=== PATIENT | female | born 1995 | race Caucasian/White ===

== ENCOUNTER 2017-11-22 12:52 | Emergency (ER) | payer SELFPAY ==
[2017-11-22 13:57] LABS: #Eosinphils 0.2 thou/uL (0.0-0.7); #Lymphocytes 1.7 thou/uL (1.20-3.40); #Monocytes 0.2 thou/uL (0.11-0.59); %Basophils 0.2 % (0.0-1.0); %Eosinophils 1.9 % (0.0-10.0); %Lymphocytes 21.1 % (21.0-51.0); %Monocytes 2.4 % (0.0-10.0); %Neutrophils 74.4 % (42.0-75.0); Hemoglobin 13.6 g/dL (12.0-16.0); Mean Corpuscular Hemoglobin 31.4 pg (27.0-31.0); Mean Corpuscular Volume 92.4 fl (81.0-99.0); Mean Platelet Volume 6.9 fL (7.4-10.4); Platelet Count 278 thou/uL (130-400); RBC Distribution Width 11.5 % (11.5-14.5); Red Blood Cell (RBC) Count 4.34 mill/uL (4.20-5.40); White Blood Cell (WBC) Count 8.1 thou/uL (4.8-10.8)
[2017-11-22 14:28] LABS: ALT (SGPT) 10 U/L (8-55); AST (SGOT) 16 U/L (5-34); Albumin 4.6 g/dL (3.5-5.0); Alkaline Phosphatase 49 U/L (40-150); Anion Gap 13 mmol/L (10-20); BUN (Urea Nitrogen) 5 mg/dL (7.0-18.7); Bilirubin, Total 0.5 mg/dL (0.2-1.2); Calc. Creatinine Clearance 0 mL/min (70-130); Calcium 9.8 mg/dL (7.8-10.44); Carbon Dioxide 23 mmol/L (22-29); Chloride 105 mmol/L (98-107); Estimated GFR-MDRD Greater than 90; Globulin 3.1 g/dL (2.4-3.5); Glucose 61 mg/dL (70-105); Potassium 3.6 mmol/L (3.5-5.1); Protein, Total 7.7 g/dL (6.0-8.3); Sodium 137 mmol/L (136-145)
--- NOTE | 2017-11-22 15:11 | ULT ---
OB ULTRASOND: Date: 11/22/17 HISTORY: Vaginal bleeding. FINDINGS: There is a single viable intrauterine . Gestational age by ultrasound is 16 weeks/0 days. Bi ometry measurements are consistent. Heart Rate: 153-155 Placenta: Fundal. Presentation: Cephalic. Amniotic Fluid: Within normal range. Cervical Length: 5.4 cm. Visualized anatomy includes limited intracranial imaging, four chamber heart, stomach, kidneys, cord insertion, and bladder. IMPRESSION: 16 weeks/0 days gestation by ultrasound. No abnormality identified. POS: [facility]
== END 2017-11-22 15:52 | disposition home or self-care (01) ==
LOC: ERS 12:52
DX: O20.0 Threatened abortion (principal); Z3A.15 15 weeks gestation of pregnancy
CPT/HCPCS: 36415; 76815; 80053; 84702; 85025; 86900; 86901